=== PATIENT | female | born 1995 | race Caucasian/White ===

== ENCOUNTER → 2019-03-01 | Outpatient (CLI) | payer BC ==
--- NOTE | 2019-03-01 13:58 | CT ---
EXAMINATION TYPE: CT brain w con DATE OF EXAM: 03/01/2019 COMPARISON: 10/15/2002 HISTORY: 23-year-old female Vertigo CT DLP: 1198 mGycm Automated exposure control for dose reduction was used. Technique: CT scan of the head is performed with IV Contrast, patient injected with 100 mL of Isovue 300. Coronal/sagittal reconstructions performed. FINDINGS: There is no abnormal enhancing mass or midline shift identified. No craniocervical junction abnormal ity. No empty sella. The ventricles and sulci are within normal limits in size. The globes are intact. Lobulated polyps or mucosal retention cysts along the floors of the maxillary sinuses. Mild mucosal t hickening ethmoid air cells. Mastoid air cells are well pneumatized. Orbits and globes are intact. IMPRESSION: Negative contrast enhanced head CT exam. Mild chronic maxillary and ethmoid sinus disease.
== END | disposition home or self-care (01) ==
LOC: RADCTMAIN 12:07
PROVIDERS: ATTEND Family Medicine
DX: J32.8 Other chronic sinusitis (principal)
CPT/HCPCS: 70460; Q9967

== ENCOUNTER 2020-03-21 13:41 | Emergency (ER) | payer BC ==
[2020-03-21 13:46] VITALS: BP 123/92; PULSE 86; RESP 18; TEMP 98.9
--- NOTE | 2020-03-21 14:42 | ED ---
Anxiety HPI - General Chief Complaint: Anxiety Stated Complaint: Anxiety Time Seen by Provider: 03/21/20 14:07 Source: patient, family Mode of arrival: wheelchair - History of Present Illness Initial Comments: 24-year-old female presents today for chief complaint of anxiety possible panic attack. Patient states she has history of depression and anxiety. She states she does have a history of panic attacks. She said she has not happened in quite some time. Patient states the past 2 days should have episodes where she feels sweaty feels like the world is going to end and she is going to . Patient states that that time she has some small inconsistent chest pain that is sharp in nature. She denies shortness of breath. Patient states they go away after about 10 minutes. Patient states he feels similar to when she's had panic attacks in the past. Patient states she is on Abilify she does not believe it is really helping. Patient denies any suicidal or homicidal ideation. Patient denies any current chest pain associated chest pressure. Patient denies any pain with inspiration leg swelling hemoptysis history of cancer DVT or pulmonary embolism. Patient denies any history of clotting disorders denies any recent surgeries exogenous hormone use or . Patient denies any jaw or arm pain. Patient upon arrival. She felt no signs of acute distress, VS within acceptable limits HR WNL. - Related Data Home Medications: Previous Rx's Medication Instructions Recorded ALPRAZolam [Xanax] 0.25 mg PO HS PRN 3 Days #3 tab 03/21/20 Allergies/Adverse Reactions: Allergies Allergy/AdvReac Type Severity Reaction Status Date / Time No Known Allergies Allergy Verified 03/21/20 13:46 Review of Systems ROS Statement: Those systems with pertinent positive or pertinent negative responses have been documented in the HPI. ROS Other: All systems not noted in ROS Statement are negative. Past Medical History Past Medical History: No Reported History History of Any Multi-Drug Resistant Organisms: None Reported Past Surgical History: No Surgical Hx Reported Past Psychological History: Anxiety, Depression Smoking Status: Never smoker Past Alcohol Use History: Occasional Past Drug Use History: Marijuana General Exam - General Exam Comments Initial Comments: General: The patient is awake and alert, in no distress Eye: Pupils are equal, round and reactive to light, extra-ocular movements are intact. No nystagmus. There is normal conjunctiva bilaterally. No signs of icterus. Ears, nose, mouth and throat: There are moist mucous membranes and no oral lesions. Neck: The neck is supple, there is no tenderness or JVD. Cardiovascular: There is a regular rate and rhythm. No murmur, rub or gallop is appreciated. Respiratory: Lungs are clear to auscultation, respirations are non-labored, breath sounds are equal. No wheezes, stridor, rales, or rhonchi. Gastrointestinal: Soft, non-distended, non-tender abdomen without masses or organomegaly noted. There is no rebound or guarding present. Musculoskeletal: Normal ROM, no tenderness. Strength 5/5. Sensation intact. Radial pulses equal bilaterally 2+. Neurological: A&O x 3. CN II-XII intact, There are no obvious motor or sensory deficits. Coordination appears grossly intact. Speech is normal. Skin: Skin is warm and dry and no rashes or lesions are noted. No LE edema or swelling. No calf pain to palpation. Psychiatric: Cooperative, appropriate mood & affect, normal judgment. Course Vital Signs 03/21/20 03/21/20 13:42 14:49 Temperature 98.9 F 98.9 F Pulse Rate 86 86 Respiratory 18 18 Rate Blood Pressure 123/92 123/92 O2 Sat by Pulse 98 98 Oximetry Medical Decision Making - Medical Decision Making 24-year-old female presented for chief complaint of anxiety. Patient has history of panic disorder. PE unremarkable. PERC (-). Low heart score, CP does not appear typical. EKG WNL Patient HR WNL. She does not appear toxic. No current chest pain. Patient after discussing symptoms is agreeable to discharge with anxiety about of medications when necessary. She is to follow-up with psychiatry return for homicide ideation or persistent chest pain. Patient verbalized that she feels this is all secondary to anxiety. Patient agreeable to discharge and return parameters. DIscused case with Dr. Anderson who is agreeable to this care plan. Disposition Clinical Impression: Anxiety, History of panic disorder Disposition: HOME SELF-CARE Condition: Stable Instructions (If sedation given, give patient instructions): Generalized Anxiety Disorder (ED), Panic Attack (ED) Additional Instructions: Please use medication as discussed. Please follow-up with family doctor in the next 2 days. Please return to emergency room if the symptoms increase or worsen or for any other concerns. Prescriptions: ALPRAZolam [Xanax] 0.25 mg PO HS PRN 3 Days #3 tab PRN Reason: Anxiety Is patient prescribed a controlled substance at d/c from ED?: No Referrals: Martha Antony DO [Primary Care Provider] - 1-2 days Time of Disposition: 14:41
== END 2020-03-21 14:49 | disposition home or self-care (01) ==
LOC: EC 13:41
DX: F41.9 Anxiety disorder, unspecified (principal)
CPT/HCPCS: 93005; 99283

== ENCOUNTER 2021-08-11 09:49 | Emergency (ER) | payer BC ==
[2021-08-11 11:21] VITALS: RESP 18; TEMP 99.3
[2021-08-11 12:51] VITALS: PULSE 90
[2021-08-11 12:52] VITALS: BP 121/75
[2021-08-11] MEDS ORDERED: ACETAMINOPHEN TAB 500 MG TAB PO STA (13:22)
--- NOTE | 2021-08-11 13:25 | ED ---
General Adult HPI - General Chief complaint: Upper Respiratory Infection Stated complaint: Cough/Headache/Vomiting Time Seen by Provider: 08/11/21 13:00 Source: patient, RN notes reviewed, old records reviewed Mode of arrival: ambulatory Limitations: no limitations - History of Present Illness Initial comments: This is a 25 year old female presents emergency Department body aches cough and a low-grade fever. Patient states it started about 4 days ago. Patient states she's also lost some of her taste and smell. Patient also said diarrhea. Patient complains of chest achiness as well as overall body achiness. Patient came in today because she was concerned about the chest achiness. Patient denies any shortness of breath or difficulty breathing. Patient denies any abdominal pain patient denies any back pain. Patient denies lightheadedness or dizziness. - Related Data Previous Rx's Medication Instructions Recorded ALPRAZolam [Xanax] 0.25 mg PO HS PRN 3 Days #3 tab 03/21/20 Allergies Allergy/AdvReac Type Severity Reaction Status Date / Time No Known Allergies Allergy Verified 08/11/21 11:18 Review of Systems ROS Statement: Those systems with pertinent positive or pertinent negative responses have been documented in the HPI. ROS Other: All systems not noted in ROS Statement are negative. Past Medical History Past Medical History: No Reported History History of Any Multi-Drug Resistant Organisms: None Reported Past Surgical History: No Surgical Hx Reported Past Psychological History: Anxiety, Depression Smoking Status: Never smoker Past Alcohol Use History: Occasional Past Drug Use History: Marijuana General Exam - General Exam Comments Initial Comments: GENERAL: Patient is well-developed and well-nourished. Patient is nontoxic and well- hydrated and is in mild distress. ENT: Neck is soft and supple. No significant lymphadenopathy is noted. Oropharynx is clear. Moist mucous membranes. Neck has full range of motion without eliciting any pain. EYES: The sclera were anicteric and conjunctiva were pink and moist. Extraocular movements were intact and pupils were equal round and reactive to light. Eye lids were unremarkable. PULMONARY: Unlabored respirations. Good breath sounds bilaterally. No audible rales rhonchi or wheezing was noted. CARDIOVASCULAR: There is a regular rate and rhythm without any murmurs gallops or rubs. ABDOMEN: Soft and nontender with normal bowel sounds. SKIN: Skin is clear with no lesions or rashes and otherwise unremarkable. NEUROLOGIC: Patient is alert and oriented x3. Cranial nerves II through XII are grossly intact. Motor and sensory are also intact. Normal speech, volume and content. Symmetrical smile. MUSCULOSKELETAL: Normal extremities with adequate strength and full range of motion. LYMPHATICS: No significant lymphadenopathy is noted PSYCHIATRIC: Normal psychiatric evaluation. Limitations: no limitations Course Vital Signs 08/11/21 08/11/21 08/11/21 11:18 12:50 12:52 Temperature 99.3 F Pulse Rate 89 90 Respiratory 18 Rate Blood Pressure 121/75 O2 Sat by Pulse 98 Oximetry Medical Decision Making - Medical Decision Making Patient is positive for COVID. Chest x-ray shows no signs of pneumonia. I offered the patient monoclonal antibodies but she refused. Patient's EKG shows normal sinus rhythm at 80 bpm SC interval is 150 QRS is 82 QT interval 348 QTC is 421 per patient's EKG shows no ST segment elevation or depression. - Lab Data Lab Results 08/11/21 Range/Units 11:25 Coronavirus (PCR) Detected A (Not Detectd) Disposition Clinical Impression: COVID Disposition: HOME SELF-CARE Condition: Good Instructions (If sedation given, give patient instructions): Coronavirus Disease 2019 (COVID-19) Is patient prescribed a controlled substance at d/c from ED?: No Referrals: Enmanuel Pichardo MD [Primary Care Provider] - 1-2 days Time of Disposition: 13:55
--- NOTE | 2021-08-11 13:43 | XR ---
EXAMINATION TYPE: XR chest 2V DATE OF EXAM: 08/11/2021 COMPARISON: The HISTORY: Chest pain TECHNIQUE: Frontal and lateral views of the chest are obtained. FINDINGS: There is no focal air space opacity. No evidence for pneumothorax. No pleural effusion. The cardiac silhouette size is within normal limits. The osseous structures are grossly intact. IMPRESSION: 1. No acute cardiopulmonary process.
== END 2021-08-11 14:12 | disposition home or self-care (01) ==
LOC: EC 09:49
DX: U07.1 COVID-19 (principal)
CPT/HCPCS: 71046; 87635; 93005; 99284

== ENCOUNTER 2021-08-16 02:42 | Emergency (ER) | payer BC ==
[2021-08-16 02:48] VITALS: BP 114/81; PULSE 87; RESP 18; TEMP 98.5
--- NOTE | 2021-08-16 02:53 | ED ---
URI HPI - General Chief Complaint: Upper Respiratory Infection Stated Complaint: Covid+, wants antibodies Time Seen by Provider: 08/16/21 02:49 Source: patient, RN notes reviewed Mode of arrival: ambulatory Limitations: no limitations - History of Present Illness Initial Comments: 25-year-old female presents emergency Department chief complaint of COVID-19. Patient was seen here 5 days ago was tested positive for COVID-19. Patient declined monoclonal advised at the time she states that she's not feeling better and is requesting monoclonal antibodies. Patient states she's had fever cough congestion body aches. - Related Data Previous Rx's Medication Instructions Recorded ALPRAZolam [Xanax] 0.25 mg PO HS PRN 3 Days #3 tab 03/21/20 Allergies Allergy/AdvReac Type Severity Reaction Status Date / Time No Known Allergies Allergy Verified 08/16/21 02:48 Review of Systems ROS Statement: Those systems with pertinent positive or pertinent negative responses have been documented in the HPI. ROS Other: All systems not noted in ROS Statement are negative. Past Medical History Past Medical History: No Reported History History of Any Multi-Drug Resistant Organisms: None Reported Past Surgical History: No Surgical Hx Reported Past Psychological History: Anxiety, Depression Smoking Status: Never smoker Past Alcohol Use History: Occasional Past Drug Use History: Marijuana General Exam Limitations: no limitations General appearance: alert, in no apparent distress Head exam: Present: atraumatic, normocephalic, normal inspection Eye exam: Present: normal appearance, PERRL, EOMI. Absent: scleral icterus, conjunctival injection, periorbital swelling ENT exam: Present: normal exam, normal oropharynx, mucous membranes moist Neck exam: Present: normal inspection. Absent: tenderness, meningismus, lymphadenopathy Respiratory exam: Present: normal lung sounds bilaterally. Absent: respiratory distress, wheezes, rales, rhonchi, stridor Cardiovascular Exam: Present: regular rate, normal rhythm, normal heart sounds. Absent: systolic murmur, diastolic murmur, rubs, gallop, clicks Course Vital Signs 08/16/21 02:46 Temperature 98.5 F Pulse Rate 87 Respiratory 18 Rate Blood Pressure 114/81 O2 Sat by Pulse 98 Oximetry Medical Decision Making - Medical Decision Making Patient received monoclonal antibodies and will be discharged in stable condition. Disposition Clinical Impression: COVID-19 Disposition: HOME SELF-CARE Condition: Stable Instructions (If sedation given, give patient instructions): Coronavirus Disease 2019 (COVID-19) Additional Instructions: Please return to the Emergency Department if symptoms worsen or any other concerns. Is patient prescribed a controlled substance at d/c from ED?: No Referrals: Martha Antony DO [Primary Care Provider] - 1-2 days Time of Disposition: 02:51
[2021-08-16] MEDS ORDERED: SODIUM CHLORIDE 0.9% 50 ML IVPB ONE (03:15)
[2021-08-16] MEDS ORDERED: CASIRIVIMAB (REGN10933) (EUA) 600 MG, IMDEVIMAB (REGN10987) (EUA) 600 MG in SODIUM CHLO... IVPB ONE (03:15)
== END 2021-08-16 04:45 | disposition home or self-care (01) ==
LOC: EC 02:42
DX: U07.1 COVID-19 (principal); F32.A Depression, unspecified; F41.9 Anxiety disorder, unspecified; F12.90 Cannabis use, unspecified, uncomplicated; Z79.899 Other long term (current) drug therapy
CPT/HCPCS: 96360; 99283; Q0244